=== PATIENT | female | born 1955 | race Caucasian/White ===

== ENCOUNTER → 2016-11-30 | Outpatient (CLI) | payer BC ==
[~2016-11-30] MED LIST: CALC-586 PO; ESTR1TAB PO; MULT-806 PO; [UNRECOGNIZED DRUG - CODE] PO
== END ==
LOC: WC.BC 10:15
DX: Z12.31 Encounter for screening mammogram for malignant neoplasm of breast (principal); N64.59 Other signs and symptoms in breast
CPT/HCPCS: 77063; G0202